=== PATIENT | male | born 1985 | race Caucasian/White ===

== ENCOUNTER 2023-01-19 06:10 | Day surgery (SDC) | payer OTHER ==
[~2023-01-19] VITALS: Ht 182.9 cm; Wt 90.7 kg
[2023-01-19] MEDS ORDERED: CEPHALEXIN500 MG PO (12:34)
[2023-01-19] MEDS ORDERED: NAPROXEN500 MG PO (12:35)
== END 2023-01-19 14:50 | disposition home or self-care (01) ==
LOC: CIR.AMB 06:10
PROVIDERS: ATTEND Surgery
DX: K81.1 Chronic cholecystitis (principal); Z20.822 Contact with and (suspected) exposure to COVID-19